=== PATIENT | female | born 1965 | race Caucasian/White ===

== ENCOUNTER → 2016-12-01 | Outpatient (CLI) | payer OTHER ==
--- NOTE | ~2016-12-01 | MR164 ---
[facility] A Service of [facility] RADIOLOGY TEXT RESULTS PATIENT: NASRIN KINNEY LOCATION: [facility] : 67 UNIT #: [id number] AGE: [address]: Yuko Ferris MD SEX: F ORDER DR: [id number] [address] [address] [id number] O MR#: [id number] Acc #: [id number] NAME: NASRIN KINNEY : 1965 SEX: F STUDY DATE/TIME: 12/01/2016 12:59 UNIT: [facility] ROOM: STUDY DESCRIPTION: MR Shoulder Wo Contrast Lt Attending Physician: Yuko Ferris M.D. Ordering Physician: Yuko Ferris M.D. Primary Care Physician: Yuko Ferris M.D. MRI CENTER REPORT This report is preliminary unless electronic signature is present. EXAM MRI of the left shoulder without contrast HISTORY 51-year-old female complains of left shoulder pain after suffering a fall 11/10/2016. COMPARISON Left shoulder films, 11/10/2016 FINDINGS Multiplanar multiecho imaging was performed of the left shoulder utilizing a high field magnet and dedicated protocol. Examination demonstrates the humeral head to be located. Extensive marrow edema noted along the inferior and predominantly anterior aspect of the glenoid with corresponding deformity of the anteroinferior glenoid consistent with a bony Bankart fracture. This appears minimally displaced no more than 2.0 mm. Marrow edema is also noted along the lateral aspect of the humeral head in the region of the greater tuberosity which may represent a bone contusion. No convincing evidence of a Hill-Sachs impaction fracture. Small glenohumeral joint effusion with sizable filling defects noted in the axillary recess, the largest measuring up to 1.5 cm may represent a component of a hemarthrosis. Small amount of subacromial-subdeltoid bursal fluid. AC joint demonstrates mild arthropathy. The rotator cuff demonstrates mild thickening and increased signal within the supraspinatus tendon which may represent tendinopathy though in the setting of trauma could represent a cuff contusion. Focal signal abnormality within the critical zone of the supraspinatus tendon measures about 7.6 x 12.6 mm AP x mediolateral dimensions and suggests a partial-thickness articular-sided tear. No full-thickness tear is identified. The infraspinatus, teres minor and subscapularis tendons appear intact. There is a moderate amount of soft STS. [facility] A Service of [facility] RADIOLOGY TEXT RESULTS PATIENT: NASRIN KINNEY LOCATION: [facility] : 67 UNIT #: [id number] AGE: [address]: Yuko Ferris MD SEX: F ORDER DR: tissue edema in the anterior shoulder particularly around the subscapularis muscle at the myotendinous junction. The deltoid appears intact. There is degeneration of the superior labrum. The biceps anchor and long tendon of the biceps appears intact. Posterior labrum is diminutive, but no definitive tear. Abnormal appearance of the anteroinferior labrum in conjunction with the patient's bony Bankart fracture and may represent an associated anteroinferior labral tear. IMPRESSION 1. Bony Bankart fracture anterior inferior glenoid shows minimal displacement of no more than 2.0 mm. Fracture is estimated to extend from about the 10 o'clock to the 7 o'clock anteroinferior glenoid axis. 2. Bone contusion lateral aspect humeral head in the region of the greater tuberosity. 3. Complex joint effusion probably represents a hemarthrosis. 4. Approximately 8.0 x 13.0 mm partial-thickness articular-sided tear critical zone supraspinatus tendon. Dictated by... Mitch Shepard M.D. THIS IS AN ELECTRONICALLY VERIFIED REPORT Mitch Shepard M.D. at 12/05/2016 7:25 AM Rosie TD: 12/04/2016 08:19 JOB #: [id number] MRI CENTER REPORT Page 1 of 1
== END | disposition home or self-care (01) ==
LOC: SMRI 12:31
DX: M25.512 Pain in left shoulder (principal); S42.142A Displaced fracture of glenoid cavity of scapula, left shoulder, initial encounter for closed fracture; S40.022A Contusion of left upper arm, initial encounter; M25.412 Effusion, left shoulder; S46.012A Strain of muscle(s) and tendon(s) of the rotator cuff of left shoulder, initial encounter
CPT/HCPCS: 73221